=== PATIENT | female | born 1980 ===

== ENCOUNTER 2020-01-04 10:00 | Emergency (ER) | payer OTHER ==
[~2020-01-04] VITALS: Ht 157.5 cm; Wt 65.8 kg
== END 2020-01-04 12:44 | disposition home or self-care (01) ==
LOC: ER 10:00
DX: N94.6 Dysmenorrhea, unspecified (principal)

== ENCOUNTER 2021-01-10 11:37 | Outpatient (CLI) | payer OTHER | END 2021-01-10 14:19 | disposition home or self-care (01) | LOC: SONOGRAMA 11:37 | PROVIDERS: ATTEND Pathology Anatomic Pathology & Clinical Pathology | DX: E04.2 Nontoxic multinodular goiter (principal) ==

== ENCOUNTER 2021-06-19 11:00 | Inpatient (IN) | payer OTHER ==
[~2021-06-19] VITALS: Ht 157.5 cm; Wt 68.9 kg
[2021-06-19] MEDS ORDERED: PROPRANOLOL HCL10 MG PO (14:54)
[2021-06-19] MEDS ORDERED: LUGOL'S STRONG I8 ML PO (14:55)
[2021-06-19] MEDS ORDERED: PROPYLTHIOURACIL PO (14:57)
[2021-06-27] MEDS ORDERED: PROPYLTHIOURACI50 MG (08:05)
[2021-06-27] MEDS ORDERED: SYNTHROID112 MCG PO (15:40)
[2021-06-27] MEDS ORDERED: PERCOCET 5-3251 EACH PO (15:40)
[2021-06-27] MEDS ORDERED: CALCITRIOL0.5 MCG PO (15:41)
[2021-06-27] MEDS ORDERED: TUMS300 MG PO (15:43)
== END 2021-06-27 18:09 | disposition home or self-care (01) | DRG 627 ==
LOC: EDSTATUS 11:00 → SURG 06-26 05:35 → O/R 06-26 05:35 → SURH 06-26 07:00 → SURG 06-26 10:23 → SURH 06-26 11:00 → SURG 06-27 18:09
PROVIDERS: ADMIT Surgery; ATTEND Surgery
PROC: 0GTK0ZZ Resection of Thyroid Gland, Open Approach (ICD-10-PCS; principal; 2021-06-26 07:00)
DX: E05.00 Thyrotoxicosis with diffuse goiter without thyrotoxic crisis or storm (principal)

== ENCOUNTER 2024-06-14 09:45 | Inpatient (IN) | payer OTHER ==
[~2024-06-14] VITALS: Ht 157.5 cm; Wt 62.1 kg
[~2024-06-14 09:45] MED LIST: CALCITRIOL0.5 MCG PO; LUGOL'S STRONG I8 ML PO; PERCOCET 5-3251 EACH PO; PROPRANOLOL HCL10 MG PO; PROPYLTHIOURACI50 MG; PROPYLTHIOURACIL PO; SYNTHROID112 MCG PO; TUMS300 MG PO
[2024-06-14] MEDS ORDERED: SYNTHROID125 MCG PO (11:32)
[2024-06-20] MEDS ORDERED: CEFAZOLIN SODIUM 1,000 MG VIAL ONE (09:47)
[2024-06-20] MEDS ORDERED: ROSUVASTATIN CA10 MG (09:53)
[2024-06-20] MEDS ORDERED: PROMETHAZINE HCL 25 MG/ML AMPUL IV SCH (12:00)
[2024-06-20] MEDS ORDERED: MEPERIDINE HCL/PF 50 MG/ML VIAL IV SCH (12:00)
[2024-06-20] MEDS ORDERED: GABAPENTIN 300 MG CAPSULE PO SCH (13:00)
[2024-06-20 17:15] LABS: HEMATOCRIT 34.6 % (36.0-45.00); HEMOGLOBIN 11.5 g/dL (12.0-15.00); MEAN CELL VOLUME 93.8 fL (80.00-100.00); MEAN CORPUSCULAR HEMOGLOBIN 31.1 pg (27.00-32.0); MEAN CORPUSCULAR HGB CONC 33.2 g/dl (32.0-36.0); PLATELET COUNT 179 K/uL (150-450); RED BLOOD COUNT 3.69 M/uL (4.00-6.00); RED CELL DISTRIBUTION WIDTH 14.5 % (11.5-14.5)
[2024-06-21] MEDS ORDERED: IBUprofen 800 MG TABLET PO SCH (02:00)
[2024-06-21] MEDS ORDERED: SIMETHICONE 125 MG CAPSULE PO SCH (05:00)
[2024-06-21] MEDS ORDERED: KETOROLAC TROMETHAMINE 30 MG VIAL IV NR (06:45)
[2024-06-21] MEDS ORDERED: POLYETHYLENE GLYCOL 3350 17 GM BLIST.PACK PO SCH (09:00)
[2024-06-21] MEDS ORDERED: FAMOTIDINE/PF 20 MG/2 ML VIAL IV SCH (09:00)
[2024-06-22] MEDS ORDERED: LEVOTHYROXINE SODIUM 125 MCG TABLET PO SCH (06:00)
[2024-06-22] MEDS ORDERED: GABAPENTIN300 MG PO (06:21)
[2024-06-22] MEDS ORDERED: SIMETHICONE125 M1 PO (06:22)
[2024-06-22] MEDS ORDERED: POLY119PG PO (06:22)
[2024-06-22] MEDS ORDERED: IBUPROFEN800 MG PO (06:22)
== END 2024-06-22 10:05 | disposition home or self-care (01) | DRG 743 ==
LOC: O/R 06-20 05:30 → OB/GYN 06-20 05:30 → SURH 06-20 09:30 → OB/GYN 06-20 12:09
PROVIDERS: ADMIT Obstetrics & Gynecology; ATTEND Obstetrics & Gynecology
PROC: 0UT70ZZ Resection of Bilateral Fallopian Tubes, Open Approach (ICD-10-PCS; 2024-06-20)
PROC: 0UT90ZZ Resection of Uterus, Open Approach (ICD-10-PCS; principal; 2024-06-20 09:30)
DX: D25.1 Intramural leiomyoma of uterus (principal); D25.2 Subserosal leiomyoma of uterus; D25.0 Submucous leiomyoma of uterus; N80.03 Adenomyosis of the uterus; Z20.822 Contact with and (suspected) exposure to COVID-19